=== PATIENT | male | born 1995 | race Two or more races ===

== ENCOUNTER 2019-02-16 10:43 | Emergency (ER) | payer OTHER ==
[2019-02-16 11:09] VITALS: TEMP 98.9; BMI 33.2
--- NOTE | 2019-02-16 12:30 | PDOC ---
History of Present Illness - General Chief Complaint: Vomiting Blood Stated Complaint: VOMITING BLOOD Time Seen by Provider: 02/16/19 11:15 Past History - Past Medical History Allergies/Adverse Reactions: Allergies Allergy/AdvReac Type Severity Reaction Status Date / Time No Known Allergies Allergy Verified 02/16/19 11:09 Home Medications: Ambulatory Orders NK [No Known Home Medication] 02/16/19 COPD: No - Immunization History Immunization Up to Date: Yes - Psycho Social/Smoking Cessation Hx Smoking History: Current every day smoker Have you smoked in the past 12 months: Yes Information on smoking cessation initiated: No Hx Alcohol Use: No Drug/Substance Use Hx: No *Physical Exam - Vital Signs Last Vital Signs Temp Pulse Resp BP Pulse Ox 98.9 F 70 18 128/76 98 02/16/19 11:05 02/16/19 11:05 02/16/19 11:05 02/16/19 11:05 02/16/19 11:05 ED Treatment Course - RADIOLOGY Radiology Studies Ordered: Category Date Time Status CHEST PA & LAT [RAD] Stat Radiology 02/16/19 11:58 Completed Discharge - Discharge Information Problems reviewed: Yes Clinical Impression/Diagnosis: Cough, Hemoptysis Condition: Good Disposition: HOME - Admission No - Follow up/Referral Referrals: [facility] – [place] [facility] [Provider Group] - Patient Discharge Instructions Patient Printed Discharge Instructions: DI for Cough -- Adult, DI for Hemoptysis Additional Instructions: You were seen in the emergency room today for cough with blood. The xray is normal. I recommend that you follow up with your primary care doctor. If you do not have one, you can go to the [facility] on [address]. Information is provided below. Come back to the emergency room if you continue to cough up blood, have chest pain, feel short of breath or if any new or concerning symptom develops. Thank you - Post Discharge Activity
[2019-02-16 12:53] VITALS: BP 122/72; PULSE 72
--- NOTE | 2019-02-16 13:30 | PDOC ---
Attending Attestation - Resident Resident Name: Tameka Mccarthy - ED Attending Attestation I have performed the following: I have examined & evaluated the patient, The case was reviewed & discussed with the resident, I agree w/resident's findings & plan, Exceptions are as noted - HPI HPI: 02/16/19 12:45 Mr. Hall is a 23 yo M who presents to the ER with a complaint of hemoptysis The patient states the ER with a complaint of blood when he coughs Pt noted these symptoms three weeks ago and then they resolved He smokes daily so has a chronic cough The blood he noted in his sputum actually resolved But returned today No fevers or chills No chest pain No shortness of breath No palpitations Patient is unable to estimate the amount of blood he noticed. States it was not a cupful, or a half cupful Patient states he coughed once and saw this 02/16/19 13:30 - Physicial Exam PE: 02/16/19 13:30 GENERAL: The patient is in no acute distress. ENT: Ears normal, nares patent, oropharynx clear without exudates. Moist mucous membranes. NECK: Normal range of motion, supple LUNGS: Breath sounds equal, clear to auscultation bilaterally. No wheezes, and no crackles. HEART:Regular rate and rhythm, normal S1 and S2 without murmur, rub or gallop. ABDOMEN: Soft, nontender, normoactive bowel sounds. EXTREMITIES: Normal range of motion, no edema. NEUROLOGICAL: Cranial nerves II through XII grossly intact. Normal speech. No focal neurological deficits. SKIN: Warm, Dry, normal turgor, no rashes or lesions noted. - Medical Decision Making 02/16/19 13:30 23-year-old male presenting with possible blood-tinged sputum Patient unable to give me any additional details about his coughing or the sputum States he noticed this blood-tinged sputum once Chest x-ray reveals no acute finding Patient asked to follow-up with a primary care physician Given follow-up with Wood[facility]elli [place] Return to the emergency department with any other concerns or complaint
== END 2019-02-16 12:53 | disposition home or self-care (01) ==
LOC: JER 10:43
DX: R04.2 Hemoptysis (principal); F17.210 Nicotine dependence, cigarettes, uncomplicated
CPT/HCPCS: 71046-TC-FY; 99281-25

== ENCOUNTER 2023-04-11 22:55 | Emergency (ER) | payer OTHER ==
[2023-04-11 22:59] VITALS: BP 148/82; PULSE 83; RESP 18; TEMP 97.1; BMI 26.6
== END 2023-04-12 01:34 | disposition home or self-care (01) ==
LOC: JER 22:55
DX: K62.5 Hemorrhage of anus and rectum (principal); K64.4 Residual hemorrhoidal skin tags
CPT/HCPCS: 99283-25